=== PATIENT | male | born 1965 ===

== ENCOUNTER 2022-11-30 05:00 | Day surgery (SDC) | payer OTHER ==
[2022-11-23 08:15] LABS: PH,URINE 5.5 (5.0-8.0); URINE APPEARANCE Clear; URINE BILIRRUBIN Negative (NEGATIVE); URINE BLOOD Negative; URINE COLOR Yellow; URINE GLUCOSE Negative (NEGATIVE); URINE LEUKOCYTE Negative; URINE NITRATE Negative; URINE PROTEIN Trace (NEGATIVE); URINE UROBILINOGEN 0.2 E.U./dl
[2022-11-23 08:17] LABS: URINE RBC 7.7 uL (0.0-20.8)
[2022-11-23 08:20] LABS: HEMATOCRIT 45.3 % (39.0-48.0); HEMOGLOBIN 14.7 g/dL (13-16.00); MEAN CORPUSCULAR HEMOGLOBIN 26.7 pg (27.00-32.0); MEAN CORPUSCULAR HGB CONC 32.6 g/dl (32.0-36.0); PLATELET COUNT 231 K/uL (150-450); RED BLOOD COUNT 5.52 M/uL (4.00-6.00); RED CELL DISTRIBUTION WIDTH 14.4 % (11.5-14.5)
[2022-11-23 08:35] LABS: INR 1.04; PARTIAL THROMBOPLASTIN TIME 29.2 SECONDS (22.0-34.0); PROTHROMBIN TIME 10.9 SECONDS (9.0-11.5)
[2022-11-23 08:43] LABS: BILIRUBIN TOTAL 0.55 mg/dL (0.3-1.2); CALCIUM 9.3 mg/dL (8.5-10.1); CREATININE SERUM 1.19 mg/dL (0.70-1.30); GFR 63.24; GLOBULINA 3.2 G/DL (2.4-3.5); POTASSIUM 4.41 mEq/L (3.5-5.1); TOTAL PROTEIN 7.2 gm/dL (6.4-8.2)
[2022-11-23 08:53] LABS: URINE WBC 1.5 uL (0.0-23.2)
[~2022-11-30] VITALS: Ht 177.8 cm; Wt 85.7 kg
[~2022-11-30 05:00] MED LIST: ALLOPURINOL PO; COL PO; DILTIA PO
== END 2022-11-30 14:25 | disposition home or self-care (01) ==
LOC: CIR.AMB 05:00
PROVIDERS: ATTEND Otolaryngology Otology & Neurotology
DX: H61.812 Exostosis of left external canal (principal); D21.0 Benign neoplasm of connective and other soft tissue of head, face and neck; I10 Essential (primary) hypertension; Z20.822 Contact with and (suspected) exposure to COVID-19